=== PATIENT | female | born 1960 | race Caucasian/White ===

== ENCOUNTER 2016-08-02 13:37 | Emergency (ER) | payer OTHER ==
--- NOTE | 2016-08-02 13:48 | ED.REPORT ---
HPI-Allergic Reaction Date of Service Aug 02, 2016 ED Provider: Dr. Wong A 56 year ol female with a history of allergic reactions presents to the ED complaining of tight feeling chest, scratchy throat, and congestion. Associated symptoms include mild wheezing and difficulty taking deep breathes. Per nurse, the patient has recently started getting allergy injections twice per week and that her last injection was at 1000 today. Per nurse the patient has never felt like this before and she reports that she thinks that the symptoms might be caused by a combination of the pollen in the air and her recent injections. Per acquaintance in the room, the patient's uvula is swollen. The patient denies any history of diabetes or any issues with blood pressure or cholesterol. She has had a hysterectomy in the past. Nursing Notes Stated Complaint: POSSIBLE ALLERGIC REACTION Nursing Notes Reviewed: Yes Allergies: Coded Allergies: acetaminophen (Verified Allergy, Unknown, 08/02/16) oxycodone (Verified Allergy, Unknown, 08/02/16) Scheduled Prednisone (PredniSONE) 20 Mg Tablet 20 MG PO DAILY General Time Seen by MD: 13:47 Chief Complaint Other (tight feeling chest) Hx Obtained From: Patient, Other family... (unspecified acquaintance in room) Arrived By: Walk-in Onset Occurred: 1 - 4 hours ago Symptom Duration: Since onset Severity: Current: Moderate Severity: Maximum: Moderate Recent Healthcare: Recent doctor visit (Has recently been recieving allergy injections twice a week. ) Similar Sx Previous: No Past Medical History Past Medical History History of allergic reactions. Past Surgical History Reports: Hysterectomy Social History Other Social History: Good social support Ambulatory Status Independent Review of Systems Review of Systems Note: scrathcy throat. Tightness in chest. Ears / Nose / Throat: Reports: Nasal congestion Complete sys rev & neg: except as marked. Physical Exam Initial Vital Signs Vital Signs (First) Date Time Temp Pulse Resp B/P Pulse Ox O2 Delivery O2 Flow Rate FiO2 08/02/16 13:49 36.6 71 18 146/85 99 Room Air Initial VS: Reviewed Head / Eyes: Atraumatic, Normocephalic, PERRL ENT: Mucous membranes moist, Conjunctiva normal, No scleral icterus Neck: Supple, Non-tender, Full range of motion Abdomen / GI: Soft, Non-tender, No guarding, No rebound, No distention Back: No CVA tenderness Lymphatic: No lymphadenopathy Extremities: Vascular intact, Neuro intact, No swelling, No tenderness Neurologic: Alert, Oriented, Nonfocal Psychiatric: Mood/affect normal, Behavior normal, Normal thought content General/Constitutional: Awake, Alert No wheezes no stridor Cardiovascular: Heart rate NL, Regular rhythm, Heart sounds NL, No gallop Skin: Warm, Dry Rash / Lesion Notes: No hives, no erythema no rash Head / Eyes: Atraumatic, Normocephalic, PERRL, EOMI Mild uvular edema Interpretation & Diagnostics Lab Results Interpretation Test 08/02/16 13:53 Hold Purple Top Tube Received (Received) Hold Blue Top Tube Received (Received) Hold [place] Top Tube Received (Received) Re-Eval/Medical Decision Med Decision/Clinical Course Patient is observed in the ER and has clinical improvement. We will treat for allergic reaction as outpatient. Source of Hx: Old records Re-Evaluation/Progress : Time of Eval: 15:09 Re-Evaluation/Progress Note: Rechecked patient, explained test results, diagnosis, and plan for discharge. Patient understands and agrees with the plan. All questions addressed. Counseled Regarding: Diagnosis, Lab results, Need for follow-up, When/why to return to ED Discharge & Departure Primary Impression: Allergic reaction Disposition: Home Discharge Condition All VS Reviewed: Yes Condition: Improved Additional Instructions: Use prednisone, Benadryl, Pepcid to treat any recurrent allergic reaction symptoms. If you develop throat swelling, use the epinephrine auto injector prescribed. Return to the ER for worsening or severe allergic reaction type symptoms. Referrals: [facility] Portions of this note were transcribed by Marcus Huizar. I, Dr. Wong personally performed the history, physical exam and medical decision-making; I reviewed and confirmed the accuracy of the information in the transcribed note. Signed by: Amanda Pickering, 08/02/2016 1523. copies to: Magdiel Fuentes DO Aug 02, 2016 13:48 Marcus Huizar Aug 02, 2016 14:03
[2016-08-02 13:49] VITALS: BP 146/85; PULSE 71; RESP 18; O2SAT 99
[2016-08-02] MEDS ORDERED: MethylprednisoLONE Sodium Succinate 62.5 mg/mL 2 mL Inj IVPUSH ONE (14:00)
[2016-08-02] MEDS ORDERED: Famotidine 10 mg/mL 2 mL Inj IVPUSH ONE (14:00)
[2016-08-02] MEDS ORDERED: PRE20 PO (15:13)
[2016-08-02 15:28] VITALS: BP 141/81; PULSE 71; RESP 16; O2SAT 99
== END 2016-08-02 15:29 | disposition home or self-care (01) ==
LOC: SED 13:37
DX: T78.40XA Allergy, unspecified, initial encounter (principal); Y93.89 Activity, other specified; Y92.89 Other specified places as the place of occurrence of the external cause; Y99.8 Other external cause status; R06.2 Wheezing; R06.00 Dyspnea, unspecified; Z88.5 Allergy status to narcotic agent; Z88.8 Allergy status to other drugs, medicaments and biological substances
CPT/HCPCS: 96374; 96375; 99284; J1200; J2930